=== PATIENT | male | born 1980 | race Hispanic/Latino ===

== ENCOUNTER 2022-12-31 11:36 | Emergency (ER) | payer OTHER ==
[~2022-12-31] VITALS: Ht 157.5 cm; Wt 86.2 kg
[2022-12-31] MEDS ORDERED: LIDOCAINE HCL 1% 20 ML VIAL INJ SCH (12:00)
[2022-12-31] MEDS ORDERED: TETANUS/DIPHTHERIA TOXOID [ADULT] 0.5 ML VIAL IM ONE (12:30)
[2022-12-31 14:05] VITALS: BP 129/88
== END 2022-12-31 14:06 | disposition home or self-care (01) ==
LOC: EDH 11:36
DX: S61.011A Laceration without foreign body of right thumb without damage to nail, initial encounter (principal); Z98.890 Other specified postprocedural states; W26.0XXA Contact with knife, initial encounter; Y93.89 Activity, other specified; Y92.89 Other specified places as the place of occurrence of the external cause; Y99.8 Other external cause status
CPT/HCPCS: 12002; 90471; 90714

== ENCOUNTER 2024-04-12 18:42 | Emergency (ER) | payer BC ==
[~2024-04-12] VITALS: Ht 157.5 cm; Wt 88.0 kg
[2024-04-12] MEDS: acetaMINOPHEN 500 MG TABLET PO ONE (20:26)
[2024-04-12 22:03] VITALS: BP 145/90; PULSE 72; RESP 18; TEMP 98.1; O2SAT 100
== END 2024-04-12 22:09 | disposition home or self-care (01) ==
LOC: EDH 18:42
DX: S00.03XA Contusion of scalp, initial encounter (principal); G44.309 Post-traumatic headache, unspecified, not intractable; R42 Dizziness and giddiness; Z98.890 Other specified postprocedural states; W22.8XXA Striking against or struck by other objects, initial encounter; Y93.89 Activity, other specified; Y92.89 Other specified places as the place of occurrence of the external cause; Y99.8 Other external cause status
CPT/HCPCS: 70450